=== PATIENT | female | born 1990 ===

== ENCOUNTER 2021-01-19 16:17 | Emergency (ER) | payer SELFPAY ==
[~2021-01-19] VITALS: Ht 170.2 cm; Wt 72.6 kg
[2021-01-19 21:05] VITALS: BP 125/71
[2021-01-19] MEDS ORDERED: ONDANSETRON ODT 4 MG TAB PO ONE (21:15)
== END 2021-01-19 21:33 | disposition home or self-care (01) ==
LOC: ER 16:17
DX: U07.1 COVID-19 (principal); R05.9 Cough, unspecified; R06.02 Shortness of breath; R09.81 Nasal congestion; R11.2 Nausea with vomiting, unspecified; M79.18 Myalgia, other site; R53.83 Other fatigue; R51.9 Headache, unspecified; H92.03 Otalgia, bilateral
CPT/HCPCS: 99283; Q0162